=== PATIENT | female | born 1960 | race Caucasian/White ===

== ENCOUNTER 2023-06-29 17:17 | Inpatient (IN) | payer OTHER ==
--- OUTSIDE RECORDS SUMMARY | 2023-06-29 17:23 | XMS REPORT | Continuity of Care Document ---
Author Name Unknown Address [address] [facility] [address] [id number] [facility] thconnect Address [address] [facility]. [address] [place] [address] Care Team Providers Care Hand Binder Stripper Name Role Phone LUDWIN LUGO Attending Clinician LÓPEZ España Attending Clinician Unavailable Ludwin Lugo MD Attending Clinician [phone]- [phone] Doctor Unassigned, [place] Attending Clinician U navailable Only, Adc Test Attending Clinician Unavailable LUDWIN LUGO Admitting Clinician Ludwin Cox MD Admitting Clinician [phone]- [phone] Payers Payer Name Policy Type Policy Number Effective Date Expirati on Date Source [employer] CHOICE POS II [id number] 00:00:00 Allergies, Adverse Reactions, Alerts Allergy Name Allergy Type Status Severity Reaction(s) Onset Date Inactive Date Treating Clinician Comments Source NO KNOWN ALLERGIE S Drug Class Active [facility] Social History Social Habit Start Date Stop Date Quantity Comments Source Sex Assigned At [facility] Exposure to SARS-CoV-2 (event) Not sure [facility] Tobacco use and exposure 2020-03-10 00:00:00 2020-03-10 00:00:00 Never used [facility] Smoking Status Start Date Stop Date Source Never smoker [facility] Medications Ordered Medication Name Filled Medication Name Start Date Stop Date Current Medication? Ordering Clinician Indication Dosage Frequency Signature (SIG) Comments Components Source valsartan 320 mg tablet 2019-05 16:54: 08 Yes 320mg Take 320 mg by mouth daily. [facility] hydroCHLORO thiazide 25 mg tablet 2019-05 16:54: 08 Yes 25mg Take 25 mg by mouth 2 (two) times a week on and Tuesday. [facility] carvediloL 25 mg tablet 2019-05 16:54: 08 Yes 25mg Take 25 mg by mouth 2 (two) times daily with meals. [facility] rosuvastati n 5 mg tablet 2019-05 16:54: 08 Yes 5mg Take 5 mg by mouth daily. [facility] valsartan 320 mg tablet 2019-05 16:54: 08 Yes 320mg Take 320 mg by mouth daily. [facility] hydroCHLORO thiazide 25 mg tablet 2019-05 16:54: 08 Yes 25mg Take 25 mg by mouth 2 (two) times a week on and Tuesday. [facility] carvediloL 25 mg tablet 2019-05 16:54: 08 Yes 25mg Take 25 mg by mouth 2 (two) times daily with meals. [facility] rosuvastati n 5 mg tablet 2019-05 16:54: 08 Yes 5mg Take 5 mg by mouth daily. [facility] water for irrigation irrigation solution 2019-05 15:07: 00 Yes PRN, Starting Tue03/12/20 at 1007, Until Discontinu ed, Routine, Intra-op [facility] simethicone (GAS RELIEF (SIMETHICON E)) 40 mg/0.6 mL drops 2019-05 15:07: 00 Yes PRN, Starting Tue03/12/20 at 1007, Until Discontinu ed, Routine, Intra-op [facility] lactated ringers IV infusion 1,000 mL 2019-05 14:30: 00 03-12 14:20 :00 No 1000mL at 42 mL/hr, 1,000 mL, IV Infusion, ONCE, 1 dose, Tue03/12/20 at 0930, Routine, DSU Pre-op [facility] valsartan 320 mg tablet 2019-05 21:53: 38 Yes 320mg Take 320 mg by mouth daily. [facility] hydroCHLORO thiazide 25 mg tablet 2019-05 21:53: 38 Yes 25mg Take 25 mg by mouth 2 (two) times a week on and Tuesday. [facility] carvediloL 25 mg tablet 2019-05 21:53: 38 Yes 25mg Take 25 mg by mouth 2 (two) times daily with meals. [facility] rosuvastati n 5 mg tablet 2019-05 21:53: 38 Yes 5mg Take 5 mg by mouth daily. [facility] Vital Signs Vital Name Observation Time Observation Value Comments Jae diehl Systolic blood pressure 2020-03-12 16:35:00 106 mm[Hg] [facility] Diastolic blood pressure 2020-03-12 16:35:00 72 mm[Hg] [facility] Heart rate 2020-03-12 16:35:00 75 /min [facility] acute hospital Body temperature 2020-03-12 16:35:00 36.56 Nancie [facility] Respiratory rate 2020-03-12 16:35:00 17 /min [facility] Oxygen saturation in Arterial blood by Pulse oximetry 2020-03-12 16:35:00 97 /min [facility] Body height 2020-03-10 21:45:00 152.4 cm [facility] Body weight 2020-03-10 21:45:00 86.183 kg [facility] BMI 2020-03-10 21:45:00 37.11 kg/m2 [facility] Procedures Procedure Date / Time Performed Performing Clinician Source COLONOSCOPY (ENDO) 2020-03-12 15:25:56 Blu Hicks [facility] DAY SURGERY - ADC 2020-03-12 05:01:00 Doctor Norah ssigned, Bromide [facility] PATIENT FINANCIAL POLICY 2020-03-11 17:00:45 Doctor Unassigned, Brom[place] [facility] NO SHOW OR MISSED APPOINTMENT POLICY ACKNOWLEDGEMENT 2020-03-11 17:00:26 Doctor Unassigned, [place] [facility] NOTICE OF PRIVACY PRACTICES 2020-03-11 17:00:09 Doctor Unassigned, [place] [facility] CONSENT/REFUSAL FOR DIAGNOSIS AND TREATMENT 2020-03-11 16:59:48 Doctor Unassigned, [place] [facility] ASSIGNMENT OF BENEFITS 2020-03-11 16:59:30 Docto r Unassigned, Bromide [facility] CONSENT/REFUSAL FOR DIAGNOSIS AND TREATMENT 2020-03-11 16:59:14 Doctor Unassigned, Brom[place] [facility] ASSIGNMENT OF BENEFITS 2020-03-11 16:58:58 Docto r Unassigned, Bromide [facility] DSU PRE-OP 2020-03-04 05:01:00 Doctor Unass igned, Bromide [facility] Encounters Start Date/Time End Date/Time Encounter Type Admission Type Attending [facility] Facility Care Department Encounter ID Source 2021-03-20 23:58:21 Outpatient R LUDWIN CORTÉS [facility] DANIEL [id number] [facility] 2020-08-23 12:20:00 2020-08-23 12:20:00 Outpatient LÓPEZ [facility] [id number] [facility] 2020-08-02 12:20:00 2020-08-02 12:20:00 Outpatient [facility] [id number] [facility] 2020-03-12 08:45:00 2020-03-12 11:54:00 Hospital Encounter Ludwin Cortés [facility] [id number] [facility] 2020-03-12 00:00:00 2020-03-12 00:00:00 Orders Only Doctor Unassigned, Bromide [facility] [id number] [facility] 2020-03-11 11:56:31 2020-03-11 12:11:31 Laboratory Only Only, Adc Test Ludwin Cortés [facility] [id number] [facility] 2020-03-11 12:00:00 2020-03-11 12:00:00 Outpatient R LUDWIN CORTÉS [facility] [id number] [facility]
[2023-06-29 18:39] LABS: Absolute Lymphocytes (CBC) 1.5 K/uL (0.7-4.9); Hematocrit 40.4 % (36.0-45.0); Lymphocytes % 18.2 % (15.3-44.8); MCV 86.2 fL (80-100); MPV 8.5 fL (7.6-11.3); Platelets 273 thou/uL (152-406); RBC Red Blood Cell Count 4.69 M/uL (3.86-4.86)
[2023-06-29 18:58] LABS: Protime INR 1.04
--- NOTE | 2023-06-29 19:13 | RAD REPORT ---
[facility]12 pm CLINICAL HISTORY: CHEST PAIN COMPARISON: No comparisons TECHNIQUE: Portable AP view of the chest. FINDINGS: The lungs are clear. No pneumothorax or effusion. The cardiomediastinal contours are unre markable. IMPRESSION: No acute cardiopulmonary process.
[2023-06-29 19:16] LABS: ALT/SGPT 49 U/L (13-56); AST/SGOT 29 U/L (15-37); Albumin 3.6 g/dL (3.4-5.0); Alkaline Phosphatase 97 U/L (45-117); BUN Blood Urea Nitrogen 22 mg/dL (7-18); Bicarbonate 29 mEq/L (21-32); Bilirubin Direct < 0.1 mg/dL (0-0.2); Bilirubin Indirect, Calculated ND mg/dL (0.2-0.8); Bilirubin Total 0.3 mg/dL (0.2-1.0); Glomerular Filtration Rate 66 ml/min (=/>90); Glucose Level 153 mg/dL (74-106); Magnesium 1.9 mg/dL (1.6-2.4); Potassium 3.3 mEq/L (3.5-5.1); Protein, Total 7.1 g/dL (6.4-8.2); Sodium Level 139 mEq/L (136-145)
[2023-06-29 19:20] LABS: Troponin High Sensitivity 115.4 pg/mL (<58.9)
[2023-06-29 19:21] LABS: Specific Gravity 1.018 (1.005-1.030); Urine Bacteria <20 /HPF (<20); Urine Bilirubin NEGATIVE (Negative); Urine Blood Negative (Negative); Urine Clarity Clear (Clear); Urine Color Light-Yellow (Yellow); Urine Glucose NEGATIVE (Negative); Urine Mucus Slight /HPF (None Seen); Urine Protein 1+ (Negative); Urine RBC <5 /HPF (None Seen); Urine Urobilinogen Normal (Normal); Urine pH 6.5 (5.0-7.0)
--- NOTE | 2023-06-29 20:04 | ER ---
Nurse's Notes [facility] Name: Luana Castellon Age: 63 yrs Sex: Female : 1960 Arrival Date: 06/29/2023 Time: 17:17 Bed 16 Private MD: Diagnosis: NSTEMI;Syncope Presentation: 06/29 17:29 Chief complaint: Patient states: left shoulder blade pain started 2 days ago, got ko1 worse. Feels foggy, lightheaded, no chest pain, has episodes of diaphoresis. Blood sugar this morning was 174. Coronavirus screen: At this time, the client does not indicate any symptoms associated with coronavirus-19. Ebola Screen: No symptoms or risks identified at this time. Initial Sepsis Screen: Does the patient meet any 2 criteria? No. Patient's initial sepsis screen is negative. Does the patient have a suspected source of infection? No. Patient's initial sepsis screen is negative. Risk Assessment: Do you want to hurt yourself or someone else? Patient reports no desire to harm self or others. Onset of symptoms was June 29, 2023. 17:29 Method Of Arrival: Wheelchair ko1 17:29 Acuity: JORDAN 3 ko1 Triage Assessment: 17:32 General: Appears in no apparent distress. Behavior is calm, cooperative, appropriate ko1 for age. Pain: Complains of pain in left scapular area. Historical: - Allergies: 17:32 No Known Allergies; ko1 - PMHx: 17:32 Diabetes mellitus; Hypertensive disorder; ko1 - Immunization history:: Adult Immunizations up to date. - Social history:: Smoking status: Patient denies any tobacco usage or history of. Screenin:34 [facility] ED Fall Risk Assessment (Adult) History of falling in the last 3 months, bp including since admission No falls in past 3 months (0 pts). Abuse screen: Denies threats or abuse. Denies injuries from another. Nutritional screening: No deficits noted. Tuberculosis screening: No symptoms or risk factors identified. Assessment: 17:35 General: SEE TRIAGE NOTE. bp 18:36 Reassessment: Patient appears in no apparent distress at this time. Patient is alert, bp oriented x 3, equal unlabored respirations, skin warm/dry/pink. Vital Signs: 17:29 BP 140 / 98; Pulse 107; Resp 18; Temp 96.9; Pulse Ox 100% ; ko1 18:34 BP 174 / 96; Pulse 86; Resp 16; Pulse Ox 99% ; bp 19:49 BP 174 / 100; Pulse 87; Resp 16; Pulse Ox 100% ; bp 22:55 BP 136 / 88; Pulse 74; Resp 17 S; Temp 97.9; Pulse Ox 98% on R/A; ha1 ED Course: 17:21 Patient arrived in ED. im 17:32 Triage completed. ko1 17:36 Arm band placed on right wrist. Patient placed in an exam room, Patient notified of ko1 wait time. 17:42 Zeny Blair FNP-C is PHCP. kb 17:42 Jeb Galvin MD is Attending Physician. kb 17:44 Lester Ordaz, BEATA is Primary Nurse. bp 18:13 Chest Single View XRAY In Process Unspecified. EDMS 18:33 Inserted saline lock: 20 gauge in left antecubital area, using aseptic technique. Blood bp collected. 18:34 Patient has correct armband on for positive identification. bp 20:03 Matt Almanzar MD is Hospitalizing Provider. kb 22:00 Report received from BEATA Steiner. ha1 22:56 Provided Education on: need for admit . ha1 22:56 No provider procedures requiring assistance completed. Patient admitted, IV remains in ha1 place. Administered Medications: 20:30 Drug: Aspirin PO Chewable Tablet 324 mg PO once; 81 mg tablets x 4 Route: PO; bp Medication: 22:56 VIS not applicable for this client. ha1 Outcome: 20:03 Discharge ordered by . kb 20:03 Decision to Hospitalize by Provider. kb 22:57 Admitted to Med/surg accompanied by tech, via wheelchair, room 225, with chart, Report ha1 called to BEATA Melvin 22:57 Condition: stable 22:57 Discharge instructions given to patient, Instructed on the need for admit, Demonstrated understanding of instructions, 23:00 Patient left the ED. ha1 Signatures: Dispatcher [employer] EDMS Zeny Blair FNP-C FNP-Lester Padilla, RN Rosaura Garza RN RN [facility] Chelle Correa RN RN ko1 Poppy Alvarez Corrections: (The following items were deleted from the chart) 22:59 22:55 BP 136 / 88; Pulse 74bpm; Resp 17bpm; Spontaneous; Pulse Ox 98% RA; ha1 ha1 23: 23:12 Patient left the ED. ha1 ha1 23: 22:55 Patient left the ED. ha1 ha1
--- NOTE | 2023-06-29 20:04 | EDPHYS ---
Physician Documentation [facility] Name: Luana Castellon Age: 63 yrs Sex: Female : 1960 Arrival Date: 06/29/2023 Time: 17:17 Bed 16 Private MD: ED Physician Jeb Galvin HPI: 06/29 20:21 This 63 yrs old Female presents to ER via Wheelchair with complaints of High Blood kb Pressure, Upper shoulder pain. 20:21 Pt is a 63 year old female who reports left posterior shoulder pain for 4-5 days. kb Denies injury or trauma. States she didn't feel well today, her BP was high and she had episodes of diaphoresis so she came for evaluation. reports brief syncopal episode while registering to be seen. Denies chest pain or dyspnea. Historical: - Allergies: 17:32 No Known Allergies; ko1 - PMHx: 17:32 Diabetes mellitus; Hypertensive disorder; ko1 - Immunization history:: Adult Immunizations up to date. - Social history:: Smoking status: Patient denies any tobacco usage or history of. ROS: 20:19 Constitutional: Negative for fever, chills, and weight loss, kb 20:19 MS/extremity: Positive for pain, of the left scapular area, 20:19 Neuro: Positive for syncope, weakness, 20:19 All other systems are negative, Exam: 20:19 Constitutional: This is a well developed, well nourished patient who is awake, alert, kb and in no acute distress. Head/Face: Normocephalic, atraumatic. ENT: Moist Mucous membranes Cardiovascular: Regular rate Respiratory: Respirations even and unlabored. No increased work of breathing. Talking in full sentences Abdomen/GI: Soft, non-tender. No distention Skin: Warm, dry with normal turgor. Normal color. MS/ Extremity: Pulses equal, no cyanosis. Neurovascular intact. Full, normal range of motion. Neuro: Awake and alert, GCS 15, oriented to person, place, time, and situation. Moves all extremities. Normal gait. Vital Signs: 17:29 BP 140 / 98; Pulse 107; Resp 18; Temp 96.9; Pulse Ox 100% ; ko1 18:34 BP 174 / 96; Pulse 86; Resp 16; Pulse Ox 99% ; bp 19:49 BP 174 / 100; Pulse 87; Resp 16; Pulse Ox 100% ; bp 22:55 BP 136 / 88; Pulse 74; Resp 17 S; Temp 97.9; Pulse Ox 98% on R/A; ha1 MDM: 17:42 Patient medically screened. kb 20:20 Differential diagnosis: hypertensive crisis, Malignant HTN, syncope, acute MO, abnormal kb ekg, musculoskeletal pain. Data reviewed: vital signs, nurses notes. Consideration of Admission/Observation Patient was admitted/placed on observation. Escalation of care including admission/observation considered. Management of patient was discussed with the following: Hospitalist: Dr Almanzar accepts pt for admission. Historians other than the Patient: Spouse/Significant Other: father. Counseling: I had a detailed discussion with the patient and/or guardian regarding the historical points, exam findings, and any diagnostic results supporting the discharge/admit diagnosis, lab results, radiology results, the need for further work-up and treatment in the hospital. 20:21 Care significantly affected by the following chronic conditions: Diabetes, kb Hypertension. ED course: HEART score 5. 06/29 17:43 Order name: Basic Metabolic Panel; Complete Time: 19:23 kb 06/29 17:43 Order name: CBC with Diff; Complete Time: 18:57 kb 06/29 17:43 Order name: Hepatic Function; Complete Time: 19:23 kb 06/29 17:43 Order name: Magnesium; Complete Time: 19:23 kb 06/29 17:43 Order name: Protime (+inr); Complete Time: 18:59 kb 06/29 17:43 Order name: Ptt, Activated; Complete Time: 18:59 kb 06/29 17:43 Order name: Troponin High Sensitivity; Complete Time: 19:23 kb 06/29 17:43 Order name: Urinalysis w/ reflexes; Complete Time: 19:23 kb 06/29 21:10 Order name: Basic Metabolic Panel EDMS 06/29 21:10 Order name: Basic Metabolic Panel EDMS 06/29 21:10 Order name: CBC with Automated Diff EDMS 06/29 21:10 Order name: CBC with Automated Diff EDMS 06/29 21:10 Order name: Lipid Profile EDMS 06/29 21:10 Order name: Lipid Profile EDMS 06/29 17:43 Order name: Chest Single View XRAY; Complete Time: 19:18 kb 06/29 17:43 Order name: EKG; Complete Time: 17:44 kb 06/29 21:10 Order name: CONS Physician Consult EDMS 06/29 17:43 Order name: Cardiac monitoring; Complete Time: 18:13 kb 06/29 17:43 Order name: EKG - Nurse/Tech; Complete Time: 18:13 kb 06/29 17:43 Order name: IV Saline Lock; Complete Time: 18:33 kb 06/29 17:43 Order name: Labs collected and sent; Complete Time: 18:33 kb 06/29 17:43 Order name: NPO; Complete Time: 18:13 kb 06/29 17:43 Order name: O2 Per Protocol; Complete Time: 18:13 kb 06/29 17:43 Order name: O2 Sat Monitoring; Complete Time: 18:13 kb Administered Medications: 20:30 Drug: Aspirin PO Chewable Tablet 324 mg PO once; 81 mg tablets x 4 Route: PO; bp Disposition Summary: 06/29/23 20:03 Hospitalization Ordered Notes: Hospitalization Status: Inpatient Admission kb Provider: Matt Almanzar Location: Telemetry/MedSurg (Inpatient)(06/29/23 20:03) kb Condition: Stable(06/29/23 20:03) kb Problem: new kb Symptoms: are unchanged kb Bed/Room Type: Standard Room Assignment: 225(06/29/23 22:17) vc1 Diagnosis - NSTEMI kb - Syncope kb Forms: - Medication Reconciliation Form kb - SBAR form kb - Leadership Thank You Letter kb Signatures: Dispatcher [employer] EDKS Zeny Blair, SHERRY-Alejandrina POWELL-Lester Padilla, RN RN bp Elly Olivarez, RN RN vc1 Chelle Correa, RN RN ko1 Corrections: (The following items were deleted from the chart) 20:03 20:03 Home kb kb 20:03 20:03 Stable kb kb 20:03 20:03 NSTEMI kb kb 20:03 20:03 Syncope kb kb 22:17 20:03 kb vc1
[2023-06-29] MEDS ORDERED: ASPIRIN 81 MG CHEWABLE TABLET ONE (20:45)
[2023-06-29] MEDS ORDERED: MAGNESIUM HYDROXIDE 8% 30 ML PO PRN (21:01)
[2023-06-29] MEDS ORDERED: ACETAMINOPHEN 325 MG TABLET PO PRN (21:01)
[2023-06-29] MEDS ORDERED: ONDANSETRON 4 MG/2 ML VIAL IV PRN (21:01)
--- NOTE | 2023-06-29 21:32 | P.HP ---
Certification for Inpatient Patient admitted to: Observation With expected LOS: <2 Midnights Practitioner: I am a practitioner with admitting privileges, knowledge of patient current condition, hospital course, and medical plan of care. Services: Services provided to patient in accordance with Admission requirements found in Title 42 Section 412.3 of the Code of Federal Regulations Patient History Date of Service: 06/30/23 Reason for admission: Dizziness, suspected ACS. History of Present Illness: 63-year-old female patient with medical history significant for diabetes type 2, hypertension, hyperlipidemia who was evaluated for episode of left shoulder pain with associated flushing and dizzy spells. She reported that she gets intermittent pain in the left shoulder somewhat sharp pain: The ED with some component of cramping fluid. No overt episode of left-sided chest pain. She was in the ER for evaluation when she suddenly felt flushed and dizzy with elevated light loss of balance. She was subsequently admitted for inpatient workup secondary to suspected TIA/presyncope to rule out ACS. She denies any overt episode of shortness of breath on exertion, lower extremity swelling. She was recently diagnosed with diabetes type 2. Allergies No Known Allergies Allergy (Verified 06/29/23 23:21) Home Medications: Insulin Glargine/Lixisenatide [Soliqua 100 Unit-33 Mcg/ml Pen] 20 unit SQ DAILY 06/30/23 Krill/Om-3/Dha/Epa/Phospho/Ast [Amory-3 Krill Oil 300 mg Sfgl] 1 cap PO DAILY 06/30/23 Nebivolol HCl 20 mg PO DAILY 06/30/23 Rosuvastatin [Crestor*] 5 mg PO BEDTIME 06/30/23 Valsartan 320 mg PO DAILY 06/30/23 Zinc Amino Acid Chelate [Zinc] 50 mg PO DAILY 06/30/23 hydroCHLOROthiazide [Hydrochlorothiazide] 25 mg PO SEECOM 06/30/23 - Family History Father -: Diabetes Review of Systems General: Unremarkable Eyes: Unremarkable ENT: Unremarkable Respiratory: Unremarkable Cardiovascular: As per HPI Gastrointestinal: Unremarkable Genitourinary: Unremarkable Musculoskeletal: Unremarkable Integumentary: Unremarkable Neurological: Unremarkable Lymphatics: Unremarkable Physical Examination - Physical Exam General: Alert, Oriented x3 HEENT: Atraumatic, Normocephalic Neck: Supple Respiratory: Normal air movement Cardiovascular: Regular rate/rhythm, Normal S1 S2 Gastrointestinal: Soft and benign Musculoskeletal: No swelling Integumentary: No breakdown Neurological: Normal speech, Normal strength at 5/5 x4 extr - Studies Laboratory Data (last 24 hrs) 06/29/23 06/29/23 06/29/23 18:27 18:27 18:27 WBC 8.30 Hgb 14.0 Hct 40.4 Plt Count 273 PT 11.4 INR 1.04 APTT 33.5 Sodium 139 Potassium 3.3 L BUN 22 H Creatinine 0.96 Glucose 153 H Magnesium 1.9 Total Bilirubin 0.3 AST 29 ALT 49 Alkaline Phosphatase 97 Assessment and Plan - Plan ACS workup: Presentation is concerning for possible ACS. Echocardiogram to be obtained. Troponin trend has been significantly concerning. Will follow q 4-hour troponin level. Will continue on aspirin therapy and statin therapy. Will follow plans for possible intervention as per cardiology recommendation. Cardiology consultation placed. Diabetes type 2: We will monitor blood sugar before meals and at bedtime and continue sliding scale insulin for glucose control. Carb restricted diet to be continued. Hypertension: We will monitor vital signs per unit protocol and continue antihypertensive medications. Hyperlipidemia: We will continue statin therapy. Prophylaxis: Lovenox for DVT prophylaxis. CODE STATUS: Full code Disposition: We will workup for possible ACS and she will be discharged once cleared by cardiology service. - Advance Directives Does patient have a Living Will: No Does patient have a Durable POA for Healthcare: No
[2023-06-29 23:29] VITALS: BMI 35.9
[2023-06-30] MEDS: NA CHLORIDE 0.9% 1,000 ML IV SCH (00:08)
[2023-06-30] MEDS: INSULIN REGULAR (HUMAN) 100 UNIT/ML SQ SCH (07:30)
[2023-06-30 08:02] LABS: Absolute Lymphocytes (CBC) 2.1 K/uL (0.7-4.9); Hematocrit 38.8 % (36.0-45.0); Lymphocytes % 28.6 % (15.3-44.8); MCV 86.8 fL (80-100); Platelets 271 thou/uL (152-406); RBC Red Blood Cell Count 4.47 M/uL (3.86-4.86)
[2023-06-30 08:24] LABS: Potassium 3.9 mEq/L (3.5-5.1)
[2023-06-30] MEDS: ENOXAPARIN 40 MG/0.4 ML SQ SCH (09:00)
[2023-06-30] MEDS ORDERED: LIDOCAINE 1% 20 ML MDV ONE (10:40)
[2023-06-30] MEDS ORDERED: HEPA 1000U/500MLS 2,000 UNIT/1,000 ML BAG IV ONE (10:40)
[2023-06-30] MEDS ORDERED: VERAPAMIL HCL 10 MG/4 ML VIAL IV ONE (13:16)
[2023-06-30] MEDS ORDERED: FENTANYL CITR 100 MCG/2 ML ONE (13:16)
[2023-06-30] MEDS ORDERED: HEPARIN 5000 UNIT/ML 1 ML VIAL ONE (13:17)
[2023-06-30] MEDS ORDERED: MIDAZOLAM HCL 2 MG/2 ML INJ ONE (13:17)
[2023-06-30] MEDS ORDERED: HEPARIN 10,000 UNIT/10 ML VIAL IV ONE (13:17)
[2023-06-30] MEDS ORDERED: TICAGRELOR 90 MG TABLET PO ONE (13:17)
[2023-06-30] MEDS ORDERED: ATROPINE SULF 1 MG/10 ML SYR IV ONE (13:17)
[2023-06-30] MEDS ORDERED: CLOPIDOGREL 75 MG TABLET ONE (13:18)
[2023-06-30] MEDS ORDERED: ASPIRIN 325 MG TAB ONE (13:18)
--- NOTE | 2023-06-30 13:23 | EKG ---
Test Date: 2023-06-29 Test Time: 18:10:23 Rn Bariatric: BP MEASUREMENT RESULTS: Intervals: Rate: 90 UT: 192 QRSD: 82 QT: 384 QTc: 469 [place]: P: 48 UT: 192 QRS: 44 T: 46 INTERPRETIVE STATEMENTS: Sinus rhythm with marked sinus arrhythmia Possible Anterior infarct, age undetermined Abnormal ECG No previous ECG available for comparison Electronically Signed On 06-30-23 13:21:56 SAMPLER RADIOACTIVE WASTE by Josiah Lambert
--- NOTE | 2023-06-30 13:50 | ECHO ---
HEIGHT: 5 ft 0 in WEIGHT: 184 lb 0 oz DATE OF STUDY: 06/30/[address]: Matt Almanzar MD 2-DIMENSIONAL: YES M.MODE: YES DOPPLER: YES COLOR FLOW: YES TDS: PORTABLE: YES DEFINITY: BUBBLE STUDY: DIAGNOSIS: SUSPECTED ACUTE CORONARY SYNDROME CARDIAC HISTORY: CATHERIZATION: NO SURGERY: NO PROSTHETIC VALVE: NO PACEMAKER: NO MEASUREMENTS (cm) DIASTOLIC (NORMALS) SYSTOLIC (NORMALS) IVSd 1.1 (0.6-1.2) LA Diam 2.7 (1.9-4.0) LVEF 61% LVIDd 3.6 (3.5-5.7) LVIDs 2.5 (2.0-3.5) %FS 32% LVPWd 1.2 (0.6-1.2) Ao Diam 2.8 (2.0-3.7) 2 DIMENSIONAL ASSESSMENT: RIGHT ATRIUM: NORMAL LEFT ATRIUM: NORMAL RIGHT VENTRICLE: NORMAL LEFT VENTRICLE: LEFT VENTRICULAR HYPERTROPHY TRICUSPID VALVE: NORMAL MITRAL VALVE: MILD MITRAL REGURGITATION PULMONIC VALVE: NORMAL AORTIC VALVE: MILD AORTIC INSUFFICIENCY PERICARDIAL EFFUSION: NONE AORTIC ROOT: NORMAL LEFT VENTRICULAR WALL MOTION: NORMAL DOPPLER/COLOR FLOW: SEE BELOW COMMENTS: 1. NORMAL LEFT VENTRICULAR EJECTION FRACTION 55-60% 2. NORMAL WALL MOTION 3. NORMAL DIASTOLIC FUNCTION 4. MILD CONCENTRIC LEFT VENTRICULAR HYPERTROPHY 5. MILD MITRAL REGURGITAITON 6. MILD AORTIC INSUFFICIENCY TECHNOLOGIST: ALMAS COLON
--- NOTE | 2023-06-30 17:12 | CON ---
Date of Consultation: 06/30/2023 Reason For Consultation: Chest pain with elevated troponin. History Of Present Illness: A 63-year-old female presented to the emergency room because of chest pa in, radiated to the shoulder and elevated blood pressure in the 200 range along with shortness of esau ath with no exertion. No nausea, vomiting, or diarrhea. No abdominal pain. No dysuria or polyuria. No history of cardiac disease. Past Medical History: 1.Hypertension. 2.Diabetes. Medications: Refer reconciliation sheet for detailed list. Allergies: NO KNOWN DRUG ALLERGIES. Family History: No premature coronary artery disease or cancer. Social History: She does not smoke or drink. Does not use any drugs. Review of Systems: All systems reviewed and they were negative except as mentioned in HPI. Physical Examination: Vital Signs: Reviewed. Head and Neck: Pupils are equal and reactive to light. Intact eye movements. No JVD. No cervical lymphadenopathy. Neck is supple. Thyroid is not enlarged. Lungs: Clear to auscultation bilaterally. No rhonchi, rales, or crackles. No accessory muscle use. Heart: Regular rate and rhythm. No extra sounds. Abdomen: Soft, nontender. Bowel sounds positive. No organomegaly. No masses or hernia. No rigidi ty or rebound. Extremities: No edema, clubbing, or cyanosis. Intact pulses. Skin: No rash. Neurologic: Alert, awake, and oriented x3. No acute focal deficits appreciated. Investigations: BUN 20, creatinine 0.85. Troponin peaked at 140. Assessment And Recommendation: 1.Chest pain with elevated troponins, suggestive of [id number] myocardial infarction. Continu e statin, baby aspirin 81 mg daily. Keep n.p.o. Plan for coronary angiogram today and obtain an ech o. 2.Hypertension. Blood pressure is not controlled. Resume home medication. Adjust further as neede d. 3.Diabetes. Check hemoglobin A1c and recommend to start on Lipitor 40 mg q.h.s. SR/MODL Voice ID: [id number] Report ID: [id number]
--- NOTE | 2023-06-30 18:47 | P.DS ---
Admission Date: 06/29/23 Discharge Date: 06/30/23 Disposition: ROUTINE DISCHARGE Discharge Condition: FAIR Reason for Admission: Dizziness, suspected ACS. - Problems (1) Left shoulder pain Current Visit: Yes Status: Acute (2) Dizziness Current Visit: Yes Status: Acute (3) Hypertension Current Visit: Yes Status: Acute (4) Type 2 diabetes mellitus Current Visit: Yes Status: Acute Brief History of Present Illness: 63-year-old female patient with medical history significant for diabetes type 2, hypertension, hyperlipidemia who was evaluated for episode of left shoulder pain with associated flushing and dizzy spells. She reported that she gets intermittent pain in the left shoulder somewhat sharp pain. She was in the ER for evaluation when she suddenly felt flushed and dizzy. She denied any shortness of breath on exertion, lower extremity swelling. She was recently diagnosed with diabetes type 2. Initial troponin mildly elevated, chest x-ray did not show any acute disease. Patient was hospitalized for ACS rule out. Hospital Course: She was placed on the observation on the medical floor. Troponin trended fluctuated but trended up to 157. Cardiology Dr. Lambert evaluated patient and perform cardiac catheterization. No intervention done during the cardiac cath. Blood pressure readings have improved. ACS ruled out, patient is deemed stable for discharge. Vital Signs/Physical Exam: Temp Pulse Resp BP Pulse Ox 98.3 F 63 16 141/79 H 97 06/30/23 16:00 06/30/23 16:00 06/30/23 16:00 06/30/23 16:00 06/30/23 16:00 General: Alert, In no apparent distress, Oriented x3 HEENT: Mucous membr. moist/pink Neck: Supple, JVD not distended Respiratory: Clear to auscultation bilaterally, Normal air movement Cardiovascular: No edema, Regular rate/rhythm, Normal S1 S2 Gastrointestinal: Normal bowel sounds, Soft and benign, Non-distended, No tenderness Musculoskeletal: No swelling Integumentary: No rashes, No cyanosis Neurological: Normal strength at 5/5 x4 extr Laboratory Data at Discharge: WBC 7.30 thou/uL (4.3-10.9) 06/30/23 07:10 Hgb 13.4 g/dL (12.0-15.0) 06/30/23 07:10 Hct 38.8 % (36.0-45.0) 06/30/23 07:10 Plt Count 271 thou/uL (152-406) 06/30/23 07:10 PT 11.4 SECONDS (9.5-12.5) 06/29/23 18:27 INR 1.04 06/29/23 18:27 APTT 33.5 SECONDS (24.3-36.9) 06/29/23 18:27 Sodium 140 mEq/L (136-145) 06/30/23 07:10 Potassium 3.9 mEq/L (3.5-5.1) D 06/30/23 07:10 BUN 20 mg/dL (7-18) H 06/30/23 07:10 Creatinine 0.85 mg/dL (0.55-1.02) 06/30/23 07:10 Glucose 154 mg/dL (74-106) H 06/30/23 07:10 Magnesium 1.9 mg/dL (1.6-2.4) 06/29/23 18:27 Total Bilirubin 0.3 mg/dL (0.2-1.0) 06/29/23 18:27 AST 29 U/L (15-37) 06/29/23 18:27 ALT 49 U/L (13-56) 06/29/23 18:27 Alkaline Phosphatase 97 U/L (45-117) 06/29/23 18:27 Triglycerides 135 mg/dL (<150) 06/30/23 07:10 Cholesterol 166 mg/dL (<200) 06/30/23 07:10 HDL Cholesterol 38 mg/dL (40-60) L 06/30/23 07:10 Cholesterol/HDL Ratio 4.37 06/30/23 07:10 Home Medications: Insulin Glargine/Lixisenatide [Soliqua 100 Unit-33 Mcg/ml Pen] 20 unit SQ DAILY 06/30/23 Krill/Om-3/Dha/Epa/Phospho/Ast [Linden-3 Krill Oil 300 mg Sfgl] 1 cap PO DAILY 06/30/23 Nebivolol HCl 20 mg PO DAILY 06/30/23 Rosuvastatin [Crestor*] 5 mg PO BEDTIME 06/30/23 Valsartan 320 mg PO DAILY 06/30/23 Zinc Amino Acid Chelate [Zinc] 50 mg PO DAILY 02/08/24 hydroCHLOROthiazide [Hydrochlorothiazide] 25 mg PO SEECOM 06/30/23 Diet: AHA Activity: Ad tonia Followup: Juliana See [Primary Care Provider] - 1-2 Weeks Time spent managing pt's care (in minutes): 26
--- NOTE | 2023-06-30 21:24 | OP ---
Date of Procedure: 06/30/2023 Surgeon: JABARI REID Procedures Performed: 1.Selective angiogram. 2.Left heart catheterization. Indication: [id number] myocardial infarction. Access: Right radial artery 6-[place], closed with TR band. Complications: None. Bleeding: Less than 20 mL. Anesthesia: Total sedation time was 30 minutes. Description Of Procedure: After risks, benefits, and alternatives were explained, the patient agreed to procedure and signed informed consent. [email or web address] prepped and draped in usual sterile fashion. Then, I accessed right radial artery using pedi atric micropuncture kit, placed a 6-[place] slender sheath, took 5-[place] tiger 4 catheter into the ao rtic root over J-wire across the aortic valve, measured LVEDP. Pullback did not record any gradient and then engaged the left main, took standard views and then RCA and took standard views and then rem lizy the catheter and sheath, placed TR band with good hemostasis. Findings: 1.Left main, very large and normal. 2.LAD, large proximal segment. Mid segment, there is focal 30% stenosis. Rest of LAD becomes nancy l. Diagonal branch 2 is very large and no disease. 3.Left circumflex is normal with normal diagonal branches. 4.RCA is large and dominant and normal. 5.Normal LVEDP at 10 mmHg. Conclusions: 1.Mild nonobstructive coronary artery disease. 2.Borderline LVEDP. Recommendation: Medical management. /KYLE Voice ID: [id number] Report ID: [id number]
--- NOTE | 2023-06-30 21:42 | RAD REPORT ---
EXAM DESCRIPTION: USUpper Ext Artery Uni Bil06/30/2023 9:21 pm CLINICAL HISTORY: Right arm pain COMPARISON: None FINDINGS: Right subclavian, axillary, brachial,ulnar and radial arteries demonstrate normal waveform s No significant stenosis/occlusion Doppler demonstrates good flow. Grayscale, color and spectral analysis performed on all vessels IMPRESSION: Unremarkable exam
[2023-07-01 05:28] VITALS: O2SAT 98
[2023-07-01 09:12] VITALS: BP 159/97; TEMP 97.2
== END 2023-07-01 09:04 | disposition home or self-care (01) | DRG 282 ==
LOC: ER 17:17 → ERHOLD 21:01 → 2ND 22:23
PROVIDERS: ADMIT Internal Medicine Nephrology; ATTEND Internal Medicine
PROC: 4A023N7 Measurement of Cardiac Sampling and Pressure, Left Heart, Percutaneous Approach (ICD-10-PCS; principal; 2023-06-30)
PROC: B2111ZZ Fluoroscopy of Multiple Coronary Arteries using Low Osmolar Contrast (ICD-10-PCS; 2023-06-30)
DX: I21.4 Non-ST elevation (NSTEMI) myocardial infarction (principal); E11.9 Type 2 diabetes mellitus without complications; I10 Essential (primary) hypertension; E78.5 Hyperlipidemia, unspecified; M25.512 Pain in left shoulder; I25.10 Atherosclerotic heart disease of native coronary artery without angina pectoris; Z79.4 Long term (current) use of insulin; Z79.899 Other long term (current) drug therapy
CPT/HCPCS: 36415; 71045; 76937; 80048; 80061; 80076; 81001; 82947; 83735; 84484; 85025; 85610; 85730; 93005; 93306; 93458; 93931; 99152; 99153; C1893; J0461; J1644; J2001; J2250; J3010; J7030; Q9966